=== PATIENT | male | born 1990 | race Caucasian/White ===

== ENCOUNTER 2020-10-30 12:17 | Emergency (ER) | payer BC ==
--- NOTE | 2020-10-30 12:28 | ERPHSYRPT ---
- History of Present Illness Time Seen by Provider: 10/30/20 12:28 Historian: patient Exam Limitations: no limitations Physician History: This is a 29-year-old white male who last night ate tacos and drank fireball and had heartburn and reflux of acid episode late last night and then early this morning causing him to cough and gag and then vomit because of the gagging. Patient does have a significant history of gastroesophageal reflux disease and is only taking Tums for it. He denies chest pain. He denies abdominal pain. He has no shortness of breath at this time. He has no nausea. He has had no diarrhea. He has had no fevers. Timing/Duration: today, yesterday Activities at Onset: sleep (With associated reflux of acid) Abdominal Pain Onset Location: other (Pain) Severity of Pain-Max: mild (Epigastric burning) Severity of Pain-Current: none Modifying Factors: Improves With: vomiting Associated Symptoms: heartburn, vomiting Previous symptoms: no prior history Allergies/Adverse Reactions: No Known Drug Allergies Allergy (Verified 10/30/20 12:31) Travel Risk - International Travel Have you traveled outside of the country in past 3 weeks: No - Coronavirus Screening Are you exhibiting any of the following symptoms?: No Close contact with a COVID-19 positive Pt in past 14-21 Days: No - Review of Systems Constitutional: No Symptoms Eyes: No Symptoms Ears, Nose, & Throat: No Symptoms Respiratory: No Symptoms Cardiac: No Symptoms Abdominal/Gastrointestinal: No Symptoms, Vomiting, Other (Heartburn) Genitourinary Symptoms: No Symptoms Musculoskeletal: No Symptoms Skin: No Symptoms Neurological: No Symptoms Psychological: No Symptoms Endocrine: No Symptoms Hematologic/Lymphatic: No Symptoms Immunological/Allergic: No Symptoms All Other Systems: Reviewed and Negative - Past Medical History Pertinent Past Medical History: Yes Neurological History: No Pertinent History ENT History: No Pertinent History, Other Respiratory History: No Pertinent History Endocrine Medical History: No Pertinent History Musculoskeletal History: No Pertinent History GI Medical History: GERD History: No Pertinent History Psycho-Social History: No Pertinent History Male Reproductive Disorders: No Pertinent History - Past Surgical History Past Surgical History: No - Nursing Vital Signs Nursing Vital Signs: Initial Vital Signs Temperature 98.6 F 10/30/20 12:24 Pulse Rate 97 H 10/30/20 12:24 Respiratory Rate 20 10/30/20 12:24 Blood Pressure 174/115 10/30/20 12:24 O2 Sat by Pulse Oximetry 98 10/30/20 12:24 Pain Scale Pain Intensity 0 - Physical Exam General Appearance: no apparent distress, alert, anxiety Eye Exam: PERRL/EOMI, eyes nml inspection Ears, Nose, Throat Exam: normal ENT inspection, moist mucous membranes Neck Exam: normal inspection, non-tender, supple, full range of motion Respiratory Exam: normal breath sounds, lungs clear, airway intact, No chest tenderness, No respiratory distress Cardiovascular Exam: regular rate/rhythm, normal heart sounds, normal peripheral pulses Gastrointestinal/Abdomen Exam: soft, normal bowel sounds, No tenderness Rectal Exam: not done Back Exam: normal inspection, normal range of motion, No CVA tenderness, No vertebral tenderness Extremity Exam: normal inspection, normal range of motion, pelvis stable Neurologic Exam: alert, oriented x 3, cooperative, gym manager II-XII nml as tested Skin Exam: normal color, warm, dry Lymphatic Exam: No adenopathy SpO2 Interpretation: normal O2 Delivery: Room Air Ordered Tests: Active Orders 24 hr Category Date Time Status IV Insertion STAT Care 10/30/20 12:40 Active AMYLASE Stat Lab 10/30/20 13:02 Completed CBC W DIFF Stat Lab 10/30/20 13:02 Completed CMP Stat Lab 10/30/20 13:02 Completed LIPASE Stat Lab 10/30/20 13:02 Completed Lactic Acid Stat Lab 10/30/20 12:40 Completed Medication Summary Generic Name Dose Route Start Last Admin Trade Name Freq PRN Reason Stop Dose Admin Sodium Chloride 1,000 mls @ 999 mls/hr 10/30/20 12:40 10/30/20 13:25 Sodium Chloride 0.9% 1000 Ml IV 10/30/20 13:40 999 mls/hr .Q1H1M STA Administration Discontinued Medications Generic Name Dose Route Start Last Admin Trade Name Freq PRN Reason Stop Dose Admin Al Hydrox/Mg Hydrox/Simethicone Confirm 10/30/20 13:21 Maalox Es 30 Ml Unit Dose Administered 10/30/20 13:22 Dose 30 ml .ROUTE .STK-MED ONE Sodium Chloride Confirm 10/30/20 13:21 Sodium Chloride 0.9% 1000 Ml Administered 10/30/20 13:22 Dose 1,000 mls @ ud .ROUTE .STK-MED ONE Lidocaine HCl Confirm 10/30/20 13:21 Xylocaine Hcl Viscous * Administered 10/30/20 13:22 Dose 15 ml .ROUTE .STK-MED ONE Magnesium Hydroxide 45 ml 10/30/20 12:40 10/30/20 13:24 Gi Cocktail 45 Ml (Maalox/Lidocaine) PO 10/30/20 12:41 45 ml STAT ONE Administration Ondansetron HCl 4 mg 10/30/20 12:40 10/30/20 13:26 Zofran 4 Mg/2 Ml Vial IV 10/30/20 12:41 4 mg STAT ONE Administration Ondansetron HCl Confirm 10/30/20 13:18 Zofran 4 Mg/2 Ml Vial Administered 10/30/20 13:19 Dose 4 mg .ROUTE .STK-MED ONE Pantoprazole Sodium 40 mg 10/30/20 12:40 10/30/20 13:24 Protonix 40 Mg Iv IV 10/30/20 12:41 40 mg STAT ONE Administration Pantoprazole Sodium Confirm 10/30/20 13:19 Protonix 40 Mg Iv Administered 10/30/20 13:20 Dose 40 mg IV .STK-MED ONE Lab/Rad Data: Laboratory Result Diagrams 10/30/20 13:02 10/30/20 13:02 Laboratory Results 10/30/20 10/30/20 10/30/20 Range/Units 13:02 13:02 12:40 WBC 5.0 (4.0-10.5) K/mm3 RBC 5.40 (4.1-5.6) M/mm3 Hgb 16.0 (12.5-18.0) gm/dl Hct 46.4 (42-50) % MCV 85.9 (78-100) fl MCH 29.6 (26-32) pg MCHC 34.5 (32-36) g/dl RDW 12.6 (11.5-14.0) % Plt Count 297 (150-450) K/mm3 MPV 9.1 (7.5-11.0) fl Gran % 57.1 (36.0-66.0) % Eos # (Auto) 0.24 (0-0.5) Absolute Lymphs (auto) 1.23 (1.0-4.6) Absolute Monos (auto) 0.63 (0.0-1.3) Lymphocytes % 24.8 (24.0-44.0) % Monocytes % 12.7 H (0.0-12.0) % Eosinophils % 4.8 (0.00-5.0) % Basophils % 0.6 (0.0-0.4) % Absolute Granulocytes 2.83 (1.4-6.9) Basophils # 0.03 (0-0.4) Sodium 138 (137-145) mmol/L Potassium 4.1 (3.5-5.1) mmol/L Chloride 105 (98-107) mmol/L Carbon Dioxide 27 (22-30) mmol/L Anion Gap 10.6 (5-15) MEQ/L BUN 13 (9-20) mg/dL Creatinine 0.88 (0.66-1.25) mg/dL Estimated GFR > 60.0 ML/MIN Glucose 118 H (74-106) mg/dL Lactic Acid 1.5 (0.4-2.0) Calcium 9.6 (8.4-10.2) mg/dL Total Bilirubin 1.00 (0.2-1.3) mg/dL AST 35 (17-59) U/L ALT 37 (0-50) U/L Alkaline Phosphatase 47 (38-126) U/L Serum Total Protein 7.5 (6.3-8.2) g/dL Albumin 4.4 (3.5-5.0) g/dL Amylase 75 (30-110) U/L Lipase 49 (23-300) U/L - Progress Progress: improved, re-examined Counseled pt/family regarding: lab results, diagnosis, need for follow-up - Departure Departure Disposition: Home Clinical Impression: Gastritis, Gastroesophageal reflux disease Condition: Stable Critical Care Time: No Additional Instructions: Drink plenty of fluids. Avoid alcohol, caffeine, nicotine, fatty greasy spicy foods. Follow-up with your primary care physician for further management. Prescriptions: Pantoprazole 20 mg [Protonix 20MG Tablet] 20 mg PO DAILY #14 tab
[2020-10-30] MEDS ORDERED: Sodium Chloride 0.9% 1000 ML 1,000 ML IV STA (12:40)
[2020-10-30] MEDS ORDERED: Zofran 4 MG/2 ML VIAL IV ONE (12:40)
[2020-10-30] MEDS ORDERED: GI COCKTAIL 45 ML (Maalox/Lidocaine) PO ONE (12:40)
[2020-10-30] MEDS ORDERED: PROTONIX 40 MG IV IV ONE ×2 (12:40→13:19)
[2020-10-30 13:05] LABS: ALBUMIN 4.4 g/dL (3.5-5.0); ALKALINE PHOSPHATASE 47 U/L (38-126); AMYLASE 75 U/L (30-110); ANION GAP 10.6 MEQ/L (5-15); BLOOD UREA NITROGEN 13 mg/dL (9-20); CHLORIDE 105 mmol/L (98-107); Calcium 9.6 mg/dL (8.4-10.2); Carbon Dioxide 27 mmol/L (22-30); Creatinine 1 0.88 mg/dL (0.66-1.25); EST GLOMERULAR FILTRATION RATE > 60.0 ML/MIN; Glucose 118 mg/dL (74-106); LIPASE 49 U/L (23-300); Potassium 4.1 mmol/L (3.5-5.1); SGOT/AST 35 U/L (17-59); SGPT/ALT 37 U/L (0-50); SODIUM 138 mmol/L (137-145); Total Protein 7.5 g/dL (6.3-8.2)
[2020-10-30 13:09] LABS: Absolute Neutrophil Ct (ANC) 2.83 (1.4-6.9); BASOPHIL % 0.6 % (0.0-0.4); Basophil (Absolute #) 0.03 (0-0.4); Eosinophil % 4.8 % (0.00-5.0); Eosinophil (Absolute #) 0.24 (0-0.5); Hematocrit 46.4 % (42-50); Lymphocyte (Absolute #) 1.23 (1.0-4.6); Lymphocytes % 24.8 % (24.0-44.0); Mean Cell Volume 85.9 fl (78-100); Mean Corpuscular Hemoglobin 29.6 pg (26-32); Mean Corpuscular Hgb Concent. 34.5 g/dl (32-36); Mean Platelet Volume 9.1 fl (7.5-11.0); Monocyte (Absolute #) 0.63 (0.0-1.3); Monocytes % 12.7 % (0.0-12.0); Neutrophil % 57.1 % (36.0-66.0); Platelet Count 297 K/mm3 (150-450); Red Cell Distribution Width 12.6 % (11.5-14.0)
[2020-10-30] MEDS ORDERED: Zofran 4 MG/2 ML VIAL ONE (13:18)
[2020-10-30] MEDS ORDERED: Sodium Chloride 0.9% 1000 ML 1,000 ML ONE (13:21)
[2020-10-30] MEDS ORDERED: XYLOCAINE HCl Viscous ONE (13:21)
[2020-10-30] MEDS ORDERED: MAALOX ES 30 ML UNIT DOSE ONE (13:21)
[2020-10-30 14:11] VITALS: BP 132/85; PULSE 80; O2SAT 98
== END 2020-10-30 14:12 | disposition home or self-care (01) ==
LOC: ED 12:17
DX: K29.70 Gastritis, unspecified, without bleeding (principal); K21.9 Gastro-esophageal reflux disease without esophagitis
CPT/HCPCS: 36000; 36415; 80053; 82150; 83605; 83690; 85025; 96360; 96374; 96375; 99284; J2405; A9270-GY

== ENCOUNTER 2020-12-31 17:43 | Emergency (ER) | payer BC ==
[2020-12-31] MEDS ORDERED: BETADINE TOP STA (17:50)
[2020-12-31] MEDS ORDERED: SILVADENE 50 GM TP ONE ×2 (18:02→18:12)
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
[2020-12-31 18:21] VITALS: BP 158/107; PULSE 84; O2SAT 97
== END 2020-12-31 18:23 | disposition home or self-care (01) ==
LOC: ED 17:43
DX: T23.251A Burn of second degree of right palm, initial encounter (principal); X19.XXXA Contact with other heat and hot substances, initial encounter
CPT/HCPCS: 99283; A9270-GY

== ENCOUNTER 2021-07-09 05:51 | Day surgery (SDC) | payer BC ==
[2021-07-09] MEDS ORDERED: Lactated Ringers 1,000 ML IV SCH (07:00)
[2021-07-09] MEDS ORDERED: DIPRIVAN 200 MG/20 ML IV ONE ×2 (08:02→08:15)
[2021-07-09] MEDS ORDERED: Xylocaine-Mpf 2% 5 Ml Vial ONE (08:02)
[2021-07-09 09:10] VITALS: BP 131/94; PULSE 74; O2SAT 97
--- NOTE | 2021-07-18 10:37 | OP ---
SURGERY DATE/TIME: 07/09/2021 0802 PREOPERATIVE DIAGNOSIS: Hematemesis and history of gastroesophageal reflux disease. POSTOPERATIVE DIAGNOSIS: Grade 3 reflux esophagitis. PROCEDURE: Esophagogastroduodenoscopy with cold forceps biopsy of the esophagus. SURGEON: Dr. Bridges. ANESTHESIA: Medications were given by the anesthesia department. BRIEF HISTORY: The patient is a 30-year-old white male who has been having trouble with his reflux disease for a number of months. He had recently been placed on Pepcid with some improvement in his overall symptoms. The patient was felt to need to have endoscopic evaluation since he was having hematemesis. The patient was appraised of the risks of the procedure including the risk of perforation, phlebitis, untoward reaction to medication, bleeding and missed lesions. The patient verbalized his understanding and desired to have the procedure performed. DESCRIPTION OF PROCEDURE: The patient was given the medications by the anesthesia department. He had continuous pulse oximetry, ECG monitoring, intermittent blood pressure monitoring and tidal CO2 monitoring during the examination. The patient was placed in the left lateral decubitus position. A bite block was placed and the flexible Olympus gastroscope was used to intubate the oropharynx. A view of the esophagus was developed and the lower portion of the esophagus appeared to be fairly extensive excoriations lack of bleeding at this time. However, consistent with reflux esophagitis. The stomach was entered where normal gastric rugal folds were seen and these distended nicely with insufflation of air. The scope was passed along the greater curvature to the pylorus intubated. The duodenum was inspected and found to be essentially normal. The scope was withdrawn towards the stomach. A retroflex view revealed essentially normal appearing cardia region of the stomach and fundus. As the scope was withdrawn to the gastroesophageal junction, biopsies were obtained to confirm the underlying diagnosis to rule out esophageal eosinophilic esophagitis. The scope was then removed from the patient who tolerated the procedure well and was sent back to outpatient recovery in good condition.
== END 2021-07-09 09:10 | disposition home or self-care (01) ==
LOC: SDC 05:51
PROVIDERS: ATTEND Family Medicine
DX: K21.9 Gastro-esophageal reflux disease without esophagitis (principal); K20.90 Esophagitis, unspecified without bleeding; K92.0 Hematemesis
CPT/HCPCS: 88305; 88341; 88342; J2704